=== PATIENT | female | born 1960 | race Caucasian/White ===

== ENCOUNTER 2020-02-13 15:38 | Outpatient (REF) | payer MEDICAID, SELFPAY | END 2020-02-13 15:39 | disposition home or self-care (01) | LOC: HO.LAB 15:38 | PROVIDERS: Visit Provider Internal Medicine | DX: Z20.828 Contact with and (suspected) exposure to other viral communicable diseases (principal) | CPT/HCPCS: C9803; U0003 ==

== ENCOUNTER 2020-06-03 10:39 | Emergency (ER) | payer OTHER, SELFPAY ==
--- NOTE | ~2020-06-03 | CT_ITS ---
EXAMINATION: CT ABDOMEN AND PELVIS WITH CONTRAST CLINICAL INFORMATION: Left lower quadrant abdominal pain. Evaluate for diverticulitis. COMPARISON: 06/14/2019 TECHNIQUE: Multidetector volumetric images were obtained from the superior aspect of the liver through the pubic symphysis following administration 85 mL of Omnipaque 350 intravenous contrast. Sagittal and coronal reformatted images were obtained on the technologist's workstation. Oral contrast: No This CT examination was performed using dose optimization techniques as appropriate, variously including the following: *Automated exposure control *Adjustment of mA and/or kV according to patient size (this includes techniques or standardized protocols for targeted exams where dose is matched to indication/reason for exam; i.e. extremities or head) *Use of iterative reconstruction technique DLP: 515 mGy-cm FINDINGS: LUNG BASES: The visualized lung bases are unremarkable. LIVER, GALLBLADDER, AND BILIARY TREE: The liver is normal in size, shape, and attenuation. No focal hepatic lesion or biliary ductal dilatation is present. Gallbladder unremarkable. PANCREAS: Unremarkable. SPLEEN: Unremarkable. ADRENAL GLANDS: Unremarkable. KIDNEYS AND URETERS: The kidneys are normal in size and attenuation with symmetric enhancement bilaterally. There is stable mild scarring along the upper and lower poles of the right kidney. No hydronephrosis, hydroureter, or calculi seen. No perinephric stranding. BLADDER: Unremarkable. GASTROINTESTINAL TRACT: There is neither diverticulosis nor diverticulitis. Appendix not seen, presumably surgically absent. Stomach and small bowel unremarkable. ABDOMINAL WALL: No significant hernia is appreciated. LYMPH NODES: Normal. VASCULAR: Aorta is atherosclerotic but normal caliber. Patent venous structures. PELVIC VISCERA: Uterus and ovaries unremarkable. OSSEOUS STRUCTURES: No acute or suspicious osseous abnormalities. CT/CT abdomen pelvis w con IMPRESSION: No acute findings within the abdomen or pelvis to explain the patient's symptomatology. No diverticular disease is evident.
[2020-06-03 10:50] VITALS: BP 134/80; PULSE 77; RESP 16; TEMP 37; O2SAT 97; BMI 26.2
[2020-06-03 11:24] LABS: Glucose Urine UA NEG (NEG); Leukocyte Esterase Urine NEG (NEG); Nitrite Urine NEG (NEG); PH 5.5 (5.0-8.0); Specific Gravity - Urine >= 1.030 (1.005-1.025); Urine Blood NEG (NEG); Urine Ketones NEG (NEG); Urine Protein NEG (NEG-TRACE)
[2020-06-03 11:25] LABS: Appearance Urine CLEAR; Color Urine YELLOW
[2020-06-03 11:34] LABS: Mucus Urine 2+ /LPF; RBC Urine 0-2 /HPF (0); Squamous Epithelial Cell Urine TRACE /LPF
--- NOTE | 2020-06-03 13:46 | ED.GENADULT ---
HPI - General Adult General Chief complaint: General Medical Stated complaint: LOWER BACK AND ABD PAIN RASH Time Seen by Provider: 06/03/20 12:41 Source: patient and freelance interpreter/translator Mode of arrival: ambulatory Limitations: no limitations and language barrier History of Present Illness HPI narrative: 59-year-old female with a past medical history of anxiety, hyperlipidemia here with complaints of bilateral lower abdominal pain with radiation to the back for 3 days with associated urinary frequency and subjective fever last evening. No nausea, vomiting, diarrhea, constipation. Last BM yesterday and normal. Also complaining of some position changes causing dizziness. Itching rash to the posterior neck x2 days. Was wearing a necklace and removed this. Also feels itching over the head. No new shampoo, conditioner, hair products, hair dye Related Data Previous Rx's Medication Instructions Recorded cefpodoxime 100 mg PO BID #14 tab 06/03/20 hydrocortisone 1 appl TOPICAL TID PRN #20 g 06/03/20 Allergies Allergy/AdvReac Type Severity Reaction Status Date / Time No Known Allergies Allergy Unverified 11/03/19 15:50 Review of Systems Review of Systems: Yes all other systems are reviewed and are negative Constitutional: Constitutional: Reports no additional constitutional complaints, Denies body ache(s), Denies chills, Reports fever(s) (subjective last evening), Denies headache(s) and Denies weakness Eyes: Eyes: Reports no additional eye complaints and Denies change in vision ENT: Reports system reviewed and no additional complaints, except as documented, Reports dizziness, Denies headache(s), Denies nasal congestion, Denies nasal discharge and Denies neck pain Cardiovascular: Cardiovascular: Reports no additional cardiovascular complaints, Denies chest pain, Denies leg edema and Denies dyspnea Respiratory: Respiratory: Reports no additional respiratory complaints, Denies cough and Denies dyspnea Gastrointestinal: Gastrointestinal: Reports no additional gastrointestinal complaints, Reports abdominal pain, Denies diarrhea, Denies nausea and Denies vomiting Genitourinary: Genitourinary: Reports no additional female genitourinary complaints and Denies urinary incontinence Musculoskeletal: Musculoskeletal: Reports no additional musculoskeletal complaints, Reports back pain, Denies arthralgias, Denies joint swelling, Denies neck pain, Denies numbness and Denies tingling Integumentary/Breasts: Skin/Breast: Reports system reviewed and no additional complaints, except as docu and Denies rash Neurologic: Reports system reviewed and no additional complaints, except as documented, Denies Abnormal speech present, Reports dizziness, Denies headache(s), Denies numbness, Denies tingling and Denies weakness PMFSH Past Medical History Attestation statement: The following information was validated with the patient. Source: old records reviewed and nursing notes reviewed Social History Social History Advance Directives: Yes Advance Directives Information Provided: Yes Advance Directives on File: No Physical Exam Vital Signs: Vital Signs: Last Vital Signs Temp 98.6 F 06/03/20 10:50 Pulse 78 06/03/20 16:10 Resp 16 06/03/20 16:10 BP 145/69 H 06/03/20 16:10 Pulse Ox 96 06/03/20 16:10 Body Mass Index 26.2 Const: General: cooperative, healthy appearing, comfortable and no acute distress Orientation/consciousness: patient oriented x3 Limitations: no limitations HENMT: Head: Yes normal to inspection Ears: hearing grossly normal bilaterally General nose exam: Normal external nose present Face and sinus: Yes normal facial exam Mouth: Normal oral and palatal mucosa present Throat: Yes posterior oropharynx normal Eyes: General: appearance normal, both eyes and all related structures Pupils: Equal, round and reactive pupils present Neck: Other: Urticarial rash over the posterior neck Neck: Yes normal visual inspection Chest: Chest palpation & inspection: normal inspection of the chest Resp: Effort & Inspection: normal respiratory effort Auscultation: clear to auscultation bilaterally Cardio: Rate: regular rate Rhythm: regular rhythm Peripheral pulses: Peripheral pulses 2+ throughout GI: Inspection: Yes normal to inspection Palpation (GI): Soft to palpation, Tenderness to palpation present (GI) in the LLQ; with no rebound tenderness and no guarding Auscultation: normal bowel sounds Back/Spine/Pelvis: Thoracic/Lumbar Spine: thoracic and lumbar spine normal to inspection Skin: General skin exam: no rashes or lesions noted Neuro: General: patient oriented x3, no focal motor deficits and normal sensation to monofilament Cranial nerves: Yes CN's II-XII intact bilaterally, Yes Equal, round and reactive pupils present, Yes Bilaterally intact EOM present, Yes Nystagmus not present, Yes Normal facial strength present and Yes Midline tongue present Cognition (Neuro): normal cognition Speech: No Abnormal speech present Gait exam (Neuro): Normal gait present Motor exam (neuro): 5/5 motor strength present throughout Sensory Exam: Normal double simultaneous stimulation for sensation Coordination: [id number] test normal, [id number]-[id number] test normal and tandem gait normal Extrem: General: Yes normal to inspection Course Course Course Narrative: 59-year-old female here with complaints of lower abdominal pain with radiation to the back, urinary frequency, subjective fevers, dizziness with position changes and a rash on her posterior neck. On exam the patient has tenderness over the left lower quadrant with no rebound or guarding. She is status post appendectomy. Hemodynamically stable. Urticaria rash to the posterior neck likely secondary to irritant dermatitis. Will need labs, UA, CT A/P. 1740-consistent with a UTI which is mild but based on patient's symptoms we will treat with course of antibiotics. CT negative. Labs are unremarkable. Rash is consistent with an irritant dermatitis likely secondary to the necklace patient was wearing. Reviewed worrisome signs and symptoms and when to return to the emergency department. Comfortable with discharge home. Medical Decision Making [facility] Narrative Medical decision making narrative: UTI, pyelo,renal colic, diverticulitis Lab Data Result diagrams: 06/03/20 14:58 06/03/20 14:58 Labs: Lab Results 06/03/20 06/03/20 06/03/20 Range/Units 11:06 14:58 14:58 WBC 6.6 (4.8-10.8) X10*3/uL RBC 4.25 (4.20-5.50) X10*6/uL Hgb 14.0 (12.0-16.0) g/dl Hct 40.0 (37-47) % MCV 94.1 (80-98) fL MCH 32.9 (27.0-33.0) pg MCHC 35.0 (31.0-35.0) g/dl RDW 12.1 (11.0-16.0) % Plt Count 305 (160-400) X10*3/uL MPV 9.7 (9.4-12.3) fL Immature Gran % (Auto) 0.2 (0.0-0.4) % Neut % (Auto) 38.9 L (45-73) % Lymph % (Auto) 48.7 H (20-40) % Levy % (Auto) 8.7 (2-11) % Eos % (Auto) 2.9 (0-4) % Baso % (Auto) 0.6 (0-2) % Lymph # (Auto) 3.2 (1.2-4.9) X10*3/uL Levy # (Auto) 0.6 (0.1-1.2) X10*3/uL Eos # (Auto) 0.2 (0.0-0.4) X10*3/uL Baso # (Auto) 0.0 (0.0-0.2) X10*3/uL Abs Immat Gran (auto) 0.01 (0.00-0.03) X10*3/uL Absolute Neuts (auto) 2.6 (2.0-8.3) X10*3/uL Absolute Nucleated RBC 0.000 (0.0-0.012) X10*3/uL Nucleated RBC % (auto) 0.0 (0.0-0.2) /100WBC PT 12.8 (10.8-13.0) SEC INR 1.1 (0.9-1.1) APTT 37.9 (24.1-38.0) SEC Hold Blue Top SEE NOTE Sodium (135-145) mmol/L Potassium (3.3-5.1) mmol/L Chloride (96-108) mmol/L Carbon Dioxide (22-29) mmol/L Anion Gap (12-20) BUN (9-16) mg/dL Creatinine (0.5-1.4) mg/dL Estim Creat Clear Calc Estimated GFR Random Glucose (60-115) mg/dL Calcium (8.4-10.2) mg/dL Magnesium (1.6-2.6) mg/dL Total Bilirubin (0.0-1.0) mg/dL Direct Bilirubin (0.0-0.5) mg/dL AST (5-31) U/L ALT (0-31) U/L Alkaline Phosphatase (39-117) U/L Total Protein (6.5-8.0) g/dL Albumin (3.5-5.0) g/dL Lipase (8-78) U/L Urine Color YELLOW Urine Appearance CLEAR Urine pH 5.5 (5.0-8.0) Ur Specific [place] >= 1.030 H (1.005-1.025) Urine Protein NEG (NEG-TRACE) MG/DL Urine Glucose (UA) NEG (NEG) MG/DL Urine Ketones NEG (NEG) MG/DL Urine Blood NEG (NEG) Urine Nitrite NEG (NEG) Ur Leukocyte Esterase NEG (NEG) Urine RBC 0-2 (0) /HPF Urine WBC 1-4 (0-4) /HPF Ur Squamous Epith Cells TRACE /LPF Urine Bacteria NONE /LPF Urine Mucus 2+ /LPF COVID-19 ([facility]) (Negative) COVID-19 Clin Com 06/03/20 06/03/20 Range/Units 14:58 14:58 WBC (4.8-10.8) X10*3/uL RBC (4.20-5.50) X10*6/uL Hgb (12.0-16.0) g/dl Hct (37-47) % MCV (80-98) fL MCH (27.0-33.0) pg MCHC (31.0-35.0) g/dl RDW (11.0-16.0) % Plt Count (160-400) X10*3/uL MPV (9.4-12.3) fL Immature Gran % (Auto) (0.0-0.4) % Neut % (Auto) (45-73) % Lymph % (Auto) (20-40) % Levy % (Auto) (2-11) % Eos % (Auto) (0-4) % Baso % (Auto) (0-2) % Lymph # (Auto) (1.2-4.9) X10*3/uL Levy # (Auto) (0.1-1.2) X10*3/uL Eos # (Auto) (0.0-0.4) X10*3/uL Baso # (Auto) (0.0-0.2) X10*3/uL Abs Immat Gran (auto) (0.00-0.03) X10*3/uL Absolute Neuts (auto) (2.0-8.3) X10*3/uL Absolute Nucleated RBC (0.0-0.012) X10*3/uL Nucleated RBC % (auto) (0.0-0.2) /100WBC PT (10.8-13.0) SEC INR (0.9-1.1) APTT (24.1-38.0) SEC Hold Blue Top Sodium 140 (135-145) mmol/L Potassium 4.6 (3.3-5.1) mmol/L Chloride 105 (96-108) mmol/L Carbon Dioxide 26 (22-29) mmol/L Anion Gap 14 (12-20) BUN 10 (9-16) mg/dL Creatinine 0.64 (0.5-1.4) mg/dL Estim Creat Clear Calc 84.9 Estimated GFR > 60 Random Glucose 85 (60-115) mg/dL Calcium 9.2 (8.4-10.2) mg/dL Magnesium 2.2 (1.6-2.6) mg/dL Total Bilirubin 1.1 H (0.0-1.0) mg/dL Direct Bilirubin 0.3 (0.0-0.5) mg/dL AST 22 (5-31) U/L ALT 18 (0-31) U/L Alkaline Phosphatase 66 (39-117) U/L Total Protein 7.7 (6.5-8.0) g/dL Albumin 4.3 (3.5-5.0) g/dL Lipase 44 (8-78) U/L Urine Color Urine Appearance Urine pH (5.0-8.0) Ur Specific [place] (1.005-1.025) Urine Protein (NEG-TRACE) MG/DL Urine Glucose (UA) (NEG) MG/DL Urine Ketones (NEG) MG/DL Urine Blood (NEG) Urine Nitrite (NEG) Ur Leukocyte Esterase (NEG) Urine RBC (0) /HPF Urine WBC (0-4) /HPF Ur Squamous Epith Cells /LPF Urine Bacteria /LPF Urine Mucus /LPF COVID-19 ([facility]) Negative (Negative) COVID-19 Clin Com See Note Imaging Data CT scan - abdomen: Attestation: I personally reviewed and interpreted this imaging study as follows: Radiologist's impression: EXAMINATION: CT ABDOMEN AND PELVIS WITH CONTRAST CLINICAL INFORMATION: Left lower quadrant abdominal pain. Evaluate for diverticulitis. COMPARISON: 06/14/2019 TECHNIQUE: Multidetector volumetric images were obtained from the superior aspect of the liver through the pubic symphysis following administration 85 mL of Omnipaque 350 intravenous contrast. Sagittal and coronal reformatted images were obtained on the technologist's workstation. Oral contrast: No This CT examination was performed using dose optimization techniques as appropriate, variously including the following: *Automated exposure control *Adjustment of mA and/or kV according to patient size (this includes techniques or standardized protocols for targeted exams where dose is matched to indication/reason for exam; i.e. extremities or head) *Use of iterative reconstruction technique DLP: 515 mGy-cm FINDINGS: LUNG BASES: The visualized lung bases are unremarkable. LIVER, GALLBLADDER, AND BILIARY TREE: The liver is normal in size, shape, and attenuation. No focal hepatic lesion or biliary ductal dilatation is present. Gallbladder unremarkable. PANCREAS: Unremarkable. SPLEEN: Unremarkable. ADRENAL GLANDS: Unremarkable. KIDNEYS AND URETERS: The kidneys are normal in size and attenuation with symmetric enhancement bilaterally. There is stable mild scarring along the upper and lower poles of the right kidney. No hydronephrosis, hydroureter, or calculi seen. No perinephric stranding. BLADDER: Unremarkable. GASTROINTESTINAL TRACT: There is neither diverticulosis nor diverticulitis. Appendix not seen, presumably surgically absent. Stomach and small bowel unremarkable. ABDOMINAL WALL: No significant hernia is appreciated. LYMPH NODES: Normal. VASCULAR: Aorta is atherosclerotic but normal caliber. Patent venous structures. PELVIC VISCERA: Uterus and ovaries unremarkable. OSSEOUS STRUCTURES: No acute or suspicious osseous abnormalities. CT/CT abdomen pelvis w con IMPRESSION: No acute findings within the abdomen or pelvis to explain the patient's symptomatology. No diverticular disease is evident. Discharge Plan Discharge Clinical Impression: Irritant contact dermatitis, UTI (urinary tract infection) Patient Disposition: Home, Self-Care Instructions: Urinary Tract Infection in Women (ED), Contact Dermatitis (ED) Additional Instructions: Take all the antibiotics Use the topical cream on the back of your neck Increase fluids, rest Change positions slowly Follow-up with her primary care doctor Prescriptions: New cefpodoxime 100 mg tablet 100 mg PO BID Qty: 14 RF: 0 hydrocortisone 2.5 % cream 1 appl topical TID PRN (Reason: rash) Qty: 20 RF: 0 Referrals: Reilly Seymour MD [Primary Care Provider] - 2 days Interventions: ED Discharge Assessment Last Done: 06/03/20 17:30 Discharge Date/Time: 06/03/20 17:30 Print Language: Tajik
[2020-06-03 15:10] LABS: MANUAL DIFF FLAG NO
[2020-06-03 15:12] LABS: Basophils Percent Auto 0.6 % (0-2); Eosinophils Absolute Auto 0.2 X10*3/uL (0.0-0.4); Eosinophils Percent Auto 2.9 % (0-4); Imm Gran Abs Auto 0.01 X10*3/uL (0.00-0.03); Imm Gran Pct Auto 0.2 % (0.0-0.4); Lymphocytes Absolute Auto 3.2 X10*3/uL (1.2-4.9); Lymphocytes Percent Auto 48.7 % (20-40); Mean Corpuscular Hemoglobin 32.9 pg (27.0-33.0); Mean Corpuscular Volume 94.1 fL (80-98); Mean Platelet Volume 9.7 fL (9.4-12.3); Monocytes Absolute Auto 0.6 X10*3/uL (0.1-1.2); Monocytes Percent Auto 8.7 % (2-11); Neutrophils Absolute Auto 2.6 X10*3/uL (2.0-8.3); Neutrophils Percent Auto 38.9 % (45-73); Platelet Count 305 X10*3/uL (160-400); Red Blood Count 4.25 X10*6/uL (4.20-5.50); Red Cell Distribution Width 12.1 % (11.0-16.0); White Blood Count 6.6 X10*3/uL (4.8-10.8)
[2020-06-03 15:19] LABS: INTERNATIONAL NORM RATIO 1.1 (0.9-1.1); Prothrombin Time 12.8 SEC (10.8-13.0)
[2020-06-03 15:21] LABS: Partial Thromboplastin Time 37.9 SEC (24.1-38.0)
[2020-06-03 15:25] LABS: COVID-19 Test Negative (Negative)
[2020-06-03 15:44] LABS: Alanine Aminotransferase 18 U/L (0-31); Albumin Level 4.3 g/dL (3.5-5.0); Alkaline Phosphatase 66 U/L (39-117); Anion Gap 14 (12-20); Aspartate Amino Transferase 22 U/L (5-31); Bilirubin Direct 0.3 mg/dL (0.0-0.5); Bilirubin Total 1.1 mg/dL (0.0-1.0); Blood Urea Nitrogen 10 mg/dL (9-16); Calcium 9.2 mg/dL (8.4-10.2); Carbon Dioxide 26 mmol/L (22-29); Chloride 105 mmol/L (96-108); Creatinine Clr Calc Pharmacy 84.9; Estimated Glomerular Filt Rate > 60; Glucose Random 85 mg/dL (60-115); Lipase 44 U/L (8-78); Magnesium 2.2 mg/dL (1.6-2.6); Potassium 4.6 mmol/L (3.3-5.1); Sodium 140 mmol/L (135-145); Total Protein 7.7 g/dL (6.5-8.0)
[2020-06-03 16:10] VITALS: BP 145/69; PULSE 78; RESP 16; O2SAT 96
[2020-06-03] MEDS: iohexoL 350 MG/ML 100 ML INFUS..BTL IV (16:39)
== END 2020-06-03 17:30 | disposition home or self-care (01) ==
PROVIDERS: Nurse Practitioner Family; Emergency Provider Emergency Medicine; PCP Internal Medicine
DX: N39.0 Urinary tract infection, site not specified (principal); L24.9 Irritant contact dermatitis, unspecified cause; Z20.822 Contact with and (suspected) exposure to COVID-19; R10.32 Left lower quadrant pain; M54.5 Low back pain; E78.5 Hyperlipidemia, unspecified; F41.9 Anxiety disorder, unspecified
CPT/HCPCS: 36415; 74177; 80048; 80076; 81001; 83690; 83735; 85025; 85610; 85730; 87635; 99283; 99284; Q9967

== ENCOUNTER 2020-08-15 12:45 | Emergency (ER) | payer OTHER, SELFPAY ==
--- NOTE | ~2020-08-15 | XR_ITS ---
EXAMINATION: XR CHEST CLINICAL INFORMATION: Chest pain COMPARISON: None TECHNIQUE: Frontal view of the chest was obtained. FINDINGS: The cardiac and mediastinal contours are normal. The lungs are clear. There is no pleural effusion or pneumothorax. There are degenerative changes of the spine. XR/XR chest 1V IMPRESSION: No evidence for acute disease in the chest.
--- NOTE | 2020-08-15 12:58 | ECG_ITS ---
Test Reason : CHEST PAIN Blood Pressure : / mmHG Vent. Rate : 067 BPM Atrial Rate : 067 BPM P-R Int : 160 ms QRS Dur : 082 ms QT Int : 412 ms P-R-T Axes : 009 -21 -04 degrees QTc Int : 435 ms Normal sinus rhythm Normal ECG When compared with ECG of 14-JUN-2019 12:24, No significant change was found Referred By: Generic ED Physician Electronically Signed By:JUAN ANTONIO GOLDEN MD
[2020-08-15 13:46] VITALS: BP 130/73; PULSE 72; RESP 16; TEMP 36.3; O2SAT 98; BMI 25.4
== END 2020-08-15 14:43 | disposition left against medical advice (07) ==
PROVIDERS: Emergency Provider Emergency Medicine; PCP Internal Medicine
DX: R07.9 Chest pain, unspecified (principal)
CPT/HCPCS: 71045; 93005; 99283